=== PATIENT | female | born 1995 | race Caucasian/White ===

== ENCOUNTER 2020-06-15 12:44 | Emergency (ER) | payer BC, SELFPAY ==
[2020-06-15 13:24] VITALS: BP 120/84; PULSE 120; RESP 20; O2SAT 99; BMI 31.0
--- NOTE | 2020-06-15 13:38 | HMH.EDUTC ---
[facility] [place] Disposition Clinical Impression: Exposure to COVID-19 virus, Viral upper respiratory illness Disposition: Home, Self-Care Condition on Discharge: Good Instructions: Cough, DI for Viral Upper Respiratory Infection -- Adult, Albuterol Oral Inhalation, Benzonatate Additional Instructions: *Monitor Temp, Over the counter Motrin or Tylenol as directed/as needed Tylenol every 4 hours and Motrin every 6 hours (as long as your family doctor has told you that you can take it) for fever or pain. and straight to ER if unable to lower temp less than 101.0 after medication given *Warm salt water gargles may help to soothe the throat *Throat Lozenges *Warm fluids like tea with honey may help to soothe the throat *Sleep elevated *Humidifier/Vaporizer *Flonase 2 sprays in each nostril daily but be aware that it may take 2-3 days before you notice improvement Follow up IMMEDIATELY for new or worsening symptoms or no Noticeable improvement over the next 48-72 hours. 911 for difficulty breathing or swallowing You was tested for today for COVID19 your test result should be back in the next 24-48 hours, you may call to the [facility] later today or tomorrow to see if your test results are back and the result [phone] [facility] hours are 9am-9pm You was given a handout with instructions for Self Quarantine and Self isolation for while you wait on test results and what to do if they are positive If you are positive the Health Dept will be contacting you also Prescriptions: Albuterol Sulfate [Proventil-HFA 90mcg/puff Inh] 1 - 2 puffs IH Q4HP PRN #1 inh PRN Reason: Shortness Of Breath Transmission Status: Received by [id number] Benzonatate [Tessalon Perle 100mg Cap*] 100 mg PO TID PRN #15 cap PRN Reason: Cough Transmission Status: Received by [id number] Referrals: Judson Rodriguez [Primary Care Provider] - As needed Forms: Work/School Release Medical Decision Making - Jeffrey Inquiry Pt receiving controlled substance: No Jeffrey was queried for this patient: No Vital Signs: 06/15/20 13:24 06/15/20 14:00 Temperature 98.1 F Temperature Source Oral Pulse Rate 91 H Pulse Rate [Radial] 120 H Respiratory Rate 20 20 Blood Pressure 120/84 Blood Pressure [Right Arm] 120/84 Blood Pressure Mean [Right Arm] 96 Blood Pressure Source Automatic Cuff Blood Pressure Source [Right Arm] Automatic Cuff Blood Pressure Position Sitting Blood Pressure Position [Right Arm] Sitting 02 Sat by Pulse Oximetry 99 Oxygen Delivery Method Room Air Room Air Orders (Tests/Meds): ORDERS Category Date Time Status Covid-19 Nasal PCR ([facility]) Routine Lab 06/15/20 13:15 Received [facility] [place] HPI - General Stated complaint: covid exposure, cough,headache Time Seen by Provider: 06/15/20 13:38 Mode of Arrival: Ambulatory Source of Information: Patient Limitations: No Limitations Description of Symptoms (Recalled from Triage Doc. by RN): SOB, COUGH, RUNNY NOSE HEENT Symptoms (Recalled from RN notes): Yes Resp Symptoms (Recalled from RN notes): No Skin Symptoms (Recalled from RN notes): No MS Symptoms (Recalled from RN notes): No Functional Status (Recalled from RN notes): WNL - History of Present Illness Provider Complaint: Patient reports that girlfriend was tested and dx with COVID States that she has been having symptoms now also States that she has been having cough, nasal congestion and at times feels a little short of breath after coughing States that she is unsure if she may have had fever or not - Related Data Previous Rx's Medication Instructions Recorded Albuterol Sulfate [Proventil-HFA 1 - 2 puffs IH Q4HP PRN #1 inh 06/15/20 90mcg/puff Inh] Benzonatate [Tessalon Perle 100mg 100 mg PO TID PRN #15 cap 06/15/20 Cap*] Allergies Allergy/AdvReac Type Severity Reaction Status Date / Time amoxicillin Allergy Verified 06/15/20 13:27 cephalexin [From Keflex] Allergy Verified 06/15/20 13:27 Penicillins All
[2020-06-15 14:00] VITALS: BP 120/84; PULSE 91; RESP 20; TEMP 36.7; O2SAT 99
--- NOTE | 2020-06-16 04:39 | PC.NURSE ---
Positive COVID results reported.
== END 2020-06-15 14:00 | disposition home or self-care (01) ==
PROVIDERS: Emergency Provider Nurse Practitioner; PCP Pediatrics
DX: B34.9 Viral infection, unspecified (principal); J06.9 Acute upper respiratory infection, unspecified; Z20.828 Contact with and (suspected) exposure to other viral communicable diseases
CPT/HCPCS: 99201; U0003